=== PATIENT | female | born 1960 | race Hispanic/Latino ===

== ENCOUNTER 2017-09-12 18:13 | Emergency (ER) | payer OTHER ==
--- NOTE | 2017-09-12 20:13 | RAD REPORT ---
EXAM DESCRIPTION: RAD - Chest Single View - 09/12/2017 8:08 pm CLINICAL HISTORY: Chest pain. COMPARISON: None. FINDINGS: Portable technique limits examination quality. The lungs are grossly clear. The heart is normal in size. No displaced fractures. IMPRESSION: No acute intrathoracic process suspected.
[2017-09-12 20:35] LABS: Absolute Lymphocytes (CBC) 1.3 K/uL (0.7-4.9); Absolute Monocytes 0.9 K/uL (0.1-1.3); Absolute Neutrophil 5.5 K/uL (1.8-8.0); Basophils % 0.8 % (0-1.3); Eosinophils % 3.2 % (0-4.4); Hematocrit 35.4 % (36.0-45.0); Lymphocytes % 16.4 % (15.3-44.8); MCH 26.9 pg (27.0-35.0); MCV 82.1 fL (80-100); MPV 9.3 fL (7.6-11.3); Monocytes % 10.6 % (3.3-12.3); RBC Red Blood Cell Count 4.32 M/uL (3.86-4.86)
[2017-09-12 20:37] LABS: Protime INR 1.02
[2017-09-12 20:42] LABS: Bicarbonate 27 mEq/L (21-31); Glucose Level 99 mg/dL (65-120); Lipase 28 U/L (22-51); Potassium 3.9 mEq/L (3.6-5.0); Sodium Level 141 mEq/L (135-145)
[2017-09-12 20:48] LABS: ALT/SGPT 41 IU/L (10-60); AST/SGOT 42 IU/L (10-42); Alkaline Phosphatase 109 IU/L (42-121); BUN Blood Urea Nitrogen 18 mg/dL (6-20); Bilirubin Direct 0.1 mg/dL (0-0.2); Bilirubin Total 0.2 mg/dL (0.3-1.2); Creatine Phosphokinase 181 IU/L (22-269); Protein, Total 7.1 g/dL (6.0-8.3)
[2017-09-12 20:51] LABS: CKMB Creatine Kinase MB 5.5 ng/ml (0.3-4.0)
[2017-09-12] MEDS ORDERED: ASPIRIN 81 MG CHEWABLE TABLET ONE (21:15)
[2017-09-12] MEDS ORDERED: AZITHROMYCIN 250 MG TAB ONE (21:16)
[2017-09-12 21:55] LABS: CKMB Creatine Kinase MB 5.2 ng/ml (0.3-4.0)
--- NOTE | 2017-09-12 22:06 | EDPHYS ---
Physician Documentation [facility] Name: Shayy Elias Age: 57 yrs Sex: Female : 1960 Arrival Date: 09/12/2017 Time: 18:23 Bed 18 Private MD: None, None ED Physician Alok Moreno HPI: 09/12 19:39 This 57 yrs old Female presents to ER via Ambulatory with complaints of Sore dino Throat. 19:39 The patient presents with sore throat. The patient describes throat pain as raw, dino scratchy. Onset: The symptoms/episode began/occurred 2 day(s) ago. Severity of symptoms: At their worst the symptoms were mild, in the emergency department the symptoms are unchanged. Modifying factors: The symptoms are alleviated by nothing. Associated signs and symptoms: The patient has no apparent associated signs or symptoms. The patient has not experienced similar symptoms in the past. Historical: - Allergies: 18:35 No Known Allergies; sv - Home Meds: 18:35 None [Active]; sv - PMHx: 18:35 None; sv - PSHx: 18:35 Hysterectomy; Gastric Bypass; Hernia repair; sv - Immunization history:: Adult Immunizations up to date. - Social history:: Smoking status: Patient/guardian denies using tobacco. - Ebola Screening: : No symptoms or risks identified at this time. - Family history:: not pertinent. ROS: 19:39 Constitutional: Negative for fever, chills, and weight loss, Eyes: Negative for injury, dino pain, redness, and discharge, Neck: Negative for injury, pain, and swelling, Cardiovascular: Negative for chest pain, palpitations, and edema, Respiratory: Negative for shortness of breath, cough, wheezing, and pleuritic chest pain, Abdomen/GI: Negative for abdominal pain, nausea, vomiting, diarrhea, and constipation, Back: Negative for injury and pain, : Negative for injury, bleeding, discharge, and swelling, MS/Extremity: Negative for injury and deformity, Skin: Negative for injury, rash, and discoloration, Neuro: Negative for headache, weakness, numbness, tingling, and seizure, Psych: Negative for depression, anxiety, suicide ideation, homicidal ideation, and hallucinations, Allergy/Immunology: Negative for hives, rash, and allergies, Endocrine: Negative for neck swelling, polydipsia, polyuria, polyphagia, and marked weight changes, Hematologic/Lymphatic: Negative for swollen nodes, abnormal bleeding, and unusual bruising. 19:39 ENT: Positive for hoarseness, sore throat. 20:07 Respiratory: Negative for dyspnea on exertion, hemoptysis, orthopnea, pleurisy, no dino stridior. Exam: 19:39 Constitutional: This is a well developed, well nourished patient who is awake, alert, dino and in no acute distress. Head/Face: Normocephalic, atraumatic. Eyes: Pupils equal round and reactive to light, extra-ocular motions intact. Lids and lashes normal. Conjunctiva and sclera are non-icteric and not injected. Cornea within normal limits. Periorbital areas with no swelling, redness, or edema. ENT: Nares patent. No nasal discharge, no septal abnormalities noted. Tympanic membranes are normal and external auditory canals are clear. Oropharynx with no redness, swelling, or masses, exudates, or evidence of obstruction, uvula midline. Mucous membranes moist. Neck: Trachea midline, no thyromegaly or masses palpated, and no cervical lymphadenopathy. Supple, full range of motion without nuchal rigidity, or vertebral point tenderness. No Meningismus. Chest/axilla: Normal chest wall appearance and motion. Nontender with no deformity. No lesions are appreciated. Cardiovascular: Regular rate and rhythm with a normal S1 and S2. No gallops, murmurs, or rubs. Normal PMI, no JVD. No pulse deficits. Respiratory: Lungs have equal breath sounds bilaterally, clear to auscultation and percussion. No rales, rhonchi or wheezes noted. No increased work of breathing, no retractions or nasal flaring. Abdomen/GI: Soft, non-tender, with normal bowel sounds. No distension or tympany. No guarding or rebound. No evidence of tenderness throughout. Back: No spinal tenderness. No costovertebral tenderness. Full range of motion. Female : Normal external genitalia. Skin: Warm, dry with normal turgor. Normal color with no rashes, no lesions, and no evidence of cellulitis. MS/ Extremity: Pulses equal, no cyanosis. Neurovascular intact. Full, normal range of motion. Neuro: Awake and alert, GCS 15, oriented to person, place, time, and situation. Cranial nerves II-XII grossly intact. Motor strength 5/5 in all extremities. Sensory grossly intact. Cerebellar exam normal. Normal gait. Psych: Awake, alert, with orientation to person, place and time. Behavior, mood, and affect are within normal limits. Vital Signs: 18:35 BP 88 / 72; Pulse 79; Resp 18; Temp 98.7; Pulse Ox 99% ; Weight 68.04 kg; Pain 5/10; sv 19:08 BP 121 / 51; Pulse 73; Resp 20; Pulse Ox 99% ; Pain 5/10; ao 20:20 BP 121 / 65; Pulse 74; Resp 18; Pulse Ox 100% ; Pain 0/10; ao 21:26 BP 147 / 69; Pulse 76; Resp 16; Pulse Ox 100% on R/A; Pain 0/10; ao 22:32 BP 107 / 51; Pulse 74; Resp 16; Pulse Ox 100% on R/A; Pain 0/10; ao MDM: 18:47 Patient medically screened. [facility] 19:41 Data reviewed: vital signs, nurses notes, lab test result(s), EKG, radiologic studies, dino plain films. 09/12 19:38 Order name: Basic Metabolic Panel; Complete Time: 21:03 [facility] 09/12 19:38 Order name: BNP; Complete Time: 20:51 [facility] 09/12 19:38 Order name: CBC with Diff; Complete Time: 20:51 [facility] 09/12 19:38 Order name: Ckmb; Complete Time: 21:03 [facility] 09/12 19:38 Order name: CPK; Complete Time: 21:03 [facility] 09/12 19:38 Order name: LFT's; Complete Time: 21:03 [facility] 09/12 19:38 Order name: Magnesium; Complete Time: 21:03 [facility] 09/12 19:38 Order name: PT-INR; Complete Time: 20:44 [facility] 09/12 19:38 Order name: Ptt, Activated; Complete Time: 20:44 [facility] 09/12 19:38 Order name: Troponin (emerg Dept Use Only); Complete Time: 20:51 [facility] 09/12 19:38 Order name: Lipase; Complete Time: 21:03 [facility] 09/12 21:04 Order name: Ckmb [facility] 09/12 21:04 Order name: Creatine Phosphokinase [facility] 09/12 21:04 Order name: Troponin (emerg Dept Use Only); Complete Time: 22:05 [facility] 09/12 18:53 Order name: EKG; Complete Time: 18:54 sv 09/12 18:53 Order name: EKG - Nurse/Tech; Complete Time: 19:00 sv 09/12 19:38 Order name: XRAY Chest (1 view); Complete Time: 20:15 [facility] 09/12 19:38 Order name: Cardiac monitoring; Complete Time: 20:18 [facility] 09/12 19:38 Order name: IV Saline Lock; Complete Time: 20:18 [facility] 09/12 19:38 Order name: Labs collected and sent; Complete Time: 20:18 [facility] 09/12 19:38 Order name: O2 Per Protocol; Complete Time: 20:18 [facility] 09/12 19:38 Order name: O2 Sat Monitoring; Complete Time: 20:18 [facility] 09/12 21:04 Order name: Repeat Cardiac Enzymes at; Complete Time: 21:26 [facility] 09/12 21:05 Order name: CKMB Creatine Kinase MB; Complete Time: 22:05 EDMS 09/12 21:05 Order name: Creatine Phosphokinase; Complete Time: 22:05 EDMS Administered Medications: 21:26 Drug: Zithromax 500 mg Route: PO; ao 22:04 Follow up: Response: No adverse reaction ao 21:26 Drug: Aspirin 81 mg Route: PO; ao 22:04 Follow up: Response: No adverse reaction ao Disposition: 09/12/17 22:06 Discharged to Home. Impression: Acute pharyngitis, Acute laryngitis, Chest pain, unspecified. - Condition is Stable. - Discharge Instructions: Nonspecific Chest Pain, Laryngitis, Nonspecific Chest Pain, Mhkp-[id number], Pharyngitis, Ttyw-ya-Ejoq, Aspirin and Your Heart, Sore Throat, Qodk-vn-Cpeg, Laryngitis, Yaty-kp-Ixqc. - Prescriptions for Zithromax Z- Rocael 250 mg Oral Tablet - take 1 tablet by ORAL route as directed for 5 days Day 1 - take two (2) tablets one time. Day 2, 3, 4 , 5 take one (1) tablet once daily.; 6 tablet. Cheratussin AC 10- 100 mg/5 mL Oral liquid - take 5 milliliter by ORAL route every 4 hours; 120 milliliter. Medrol (Rocael) 4 mg Oral Tablets, Dose Pack - take 1 tablet by ORAL route as directed - follow package instructions; 1 packet. - Medication Reconciliation Form, Thank You Letter, Antibiotic Education, Prescription Opioid Use form. - Follow up: Private Physician; When: 2 - 3 days; Reason: Recheck today's complaints, Continuance of care, Re-evaluation by your physician. - Problem is new. - Symptoms have improved. Signatures: Dispatcher [employer] Holly Edwards RN RN sv Anderson, Corey, MD MD cha Mickail, Joel, PA PA jmm Ortiz, Alex, RN RN ao Corrections: (The following items were deleted from the chart) 22:35 22:06 09/12/2017 22:06 Discharged to Home. Impression: Acute pharyngitis; Acute ao laryngitis; Chest pain, unspecified. Condition is Stable. Discharge Instructions: Nonspecific Chest Pain, Laryngitis, Nonspecific Chest Pain, Tsej-zl-Nwmo, Pharyngitis, Ujzv-nq-Banr, Aspirin and Your Heart, Sore Throat, Ntyf-de-Hyft, Laryngitis, Buzu-vh-Qzkn. Prescriptions for Zithromax Z-Rocael 250 mg Oral Tablet - take 1 tablet by ORAL route as directed for 5 days Day 1 - take two (2) tablets one time. Day 2, 3, 4 , 5 take one (1) tablet once daily.; 6 tablet, Cheratussin AC 10-100 mg/5 mL Oral liquid - take 5 milliliter by ORAL route every 4 hours; 120 milliliter, Medrol (Rocael) 4 mg Oral Tablets, Dose Pack - take 1 tablet by ORAL route as directed - follow package instructions; 1 packet. and Forms are Medication Reconciliation Form, Thank You Letter, Antibiotic Education, Prescription Opioid Use. Follow up: Private Physician; When: 2 - 3 days; Reason: Recheck today's complaints, Continuance of care, Re-evaluation by your physician. Problem is new. Symptoms have improved. wayne
--- NOTE | 2017-09-12 22:06 | ER ---
Nurse's Notes [facility] Name: Shayy Elias Age: 57 yrs Sex: Female : 1960 Arrival Date: 09/12/2017 Time: 18:23 Bed 18 Private MD: None, None Diagnosis: Acute pharyngitis;Acute laryngitis;Chest pain, unspecified Presentation: 09/12 18:34 Presenting complaint: Patient states: sore throat, intermittent midsternal chest pain, sv green productive cough, bodyaches. Transition of care: patient was not received from another setting of care. Onset of symptoms was September 11, 2017. Care prior to arrival: None. 18:34 Method Of Arrival: Ambulatory sv 18:34 Acuity: RADHA 3 sv 19:08 Risk Assessment: Do you want to hurt yourself or someone else? Patient reports no ao desire to harm self or others. Initial Sepsis Screen: Does the patient meet any 2 criteria? No. Patient's initial sepsis screen is negative. Does the patient have a suspected source of infection? No. Patient's initial sepsis screen is negative. Historical: - Allergies: 18:35 No Known Allergies; sv - Home Meds: 18:35 None [Active]; sv - PMHx: 18:35 None; sv - PSHx: 18:35 Hysterectomy; Gastric Bypass; Hernia repair; sv - Immunization history:: Adult Immunizations up to date. - Social history:: Smoking status: Patient/guardian denies using tobacco. - Ebola Screening: : No symptoms or risks identified at this time. - Family history:: not pertinent. Screenin:08 Abuse screen: Denies threats or abuse. Denies injuries from another. Nutritional ao screening: No deficits noted. Tuberculosis screening: No symptoms or risk factors identified. Fall Risk None identified. Assessment: 19:06 General: Appears in no apparent distress. comfortable, Behavior is calm, cooperative, ao appropriate for age. Pain: Complains of pain in chest Pain currently is 5 out of 10 on a pain scale. Neuro: Level of Consciousness is awake, alert, obeys commands, Oriented to person, place, time, situation, Appropriate for age Moves all extremities. Speech is normal, Facial symmetry appears normal, Pupils are PERRLA. Cardiovascular: Capillary refill < 3 seconds Patient's skin is warm and dry. Respiratory: Airway is patent Respiratory effort is even, unlabored, Respiratory pattern is regular, symmetrical, Breath sounds with crackles bilaterally. GI: Abdomen is non-distended. : No signs and/or symptoms were reported regarding the genitourinary system. EENT: Throat is reddened. Derm: No signs and/or symptoms reported regarding the dermatologic system. Musculoskeletal: No signs and/or symptoms reported regarding the musculoskeletal system. Circulation, motion, and sensation intact. Range of motion:. 20:20 Reassessment: Patient appears in no apparent distress at this time. Patient and/or ao family updated on plan of care and expected duration. Pain level reassessed. Patient is alert, oriented x 3, equal unlabored respirations, skin warm/dry/pink. 21:26 Reassessment: Patient appears in no apparent distress at this time. Patient and/or ao family updated on plan of care and expected duration. Pain level reassessed. Patient is alert, oriented x 3, equal unlabored respirations, skin warm/dry/pink. Waiting on second troponin level and then Patient should be able to be discharge as ordered by Dr Moreno. 22:32 Reassessment: Discharge instructions given to patient. patient understand the POC and ao to follow up with PCP. Vital Signs: 18:35 BP 88 / 72; Pulse 79; Resp 18; Temp 98.7; Pulse Ox 99% ; Weight 68.04 kg; Pain 5/10; sv 19:08 BP 121 / 51; Pulse 73; Resp 20; Pulse Ox 99% ; Pain 5/10; ao 20:20 BP 121 / 65; Pulse 74; Resp 18; Pulse Ox 100% ; Pain 0/10; ao 21:26 BP 147 / 69; Pulse 76; Resp 16; Pulse Ox 100% on R/A; Pain 0/10; ao 22:32 BP 107 / 51; Pulse 74; Resp 16; Pulse Ox 100% on R/A; Pain 0/10; ao ED Course: 18:23 Patient arrived in ED. mr 18:24 None, None is Private Physician. mr 18:34 Triage completed. sv 18:36 Arm band placed on right wrist. sv 18:47 Alok Moreno MD is Attending Physician. dino 18:59 EKG done, by ED staff, reviewed by Alok Moreno MD. [facility] 19:00 Quirino Foss, RN is Primary Nurse. ao 19:00 Patient has correct armband on for positive identification. Placed in gown. Bed in low mh5 position. Call light in reach. Side rails up X 1. Pulse ox on. NIBP on. 20:00 Inserted saline lock: 20 gauge in right antecubital area, using aseptic technique. ao Blood collected. 20:08 XRAY Chest (1 view) In Process Unspecified. EDMS 21:27 Jos Morris PA is PHCP. flynn 22:34 No provider procedures requiring assistance completed. IV discontinued, intact, ao bleeding controlled, No redness/swelling at site. Pressure dressing applied. Administered Medications: 21:26 Drug: Zithromax 500 mg Route: PO; ao 22:04 Follow up: Response: No adverse reaction ao 21:26 Drug: Aspirin 81 mg Route: PO; ao 22:04 Follow up: Response: No adverse reaction ao Outcome: 22:06 Discharge ordered by . m 22:34 Discharged to home ambulatory. ao 22:34 Condition: stable 22:34 Discharge instructions given to patient, Instructed on discharge instructions, follow up and referral plans. Demonstrated understanding of instructions, follow-up care, medications, Prescriptions given X 2. 22:35 Patient left the ED. ao Signatures: Dispatcher [employer] EDMS Holly Duval, Alok Hobbs RN, MD MD cha Mickail, Joel, PA PA jmm Rivera, Maria mr Ortiz, Alex, RN RN ao Martinez, Maria [facility]
--- NOTE | 2017-09-13 06:20 | EKG ---
Test Date: 2017-09-12 Test Time: 18:47:19 Screw Eye Assembler: ELIU MEASUREMENT RESULTS: Intervals: Rate: 71 VA: 190 QRSD: 84 QT: 384 QTc: 417 [place]: P: 35 VA: 190 QRS: -14 T: 27 INTERPRETIVE STATEMENTS: Normal sinus rhythm Normal ECG No previous ECG available for comparison Electronically Signed On 09-13-17 06:19:38 CDT by Dung Zaldivar
== END 2017-09-12 22:35 | disposition home or self-care (01) ==
LOC: ER 18:13
DX: J02.9 Acute pharyngitis, unspecified (principal); J04.0 Acute laryngitis; R07.9 Chest pain, unspecified; Z98.84 Bariatric surgery status
CPT/HCPCS: 36415; 71045; 80048; 80076; 82550; 82553; 83690; 83735; 83880; 84484; 85025; 85610; 85730; 93005; 99284

== ENCOUNTER 2021-02-10 17:43 | Emergency (ER) | payer BC, OTHER ==
--- NOTE | 2021-02-10 19:10 | RAD REPORT ---
EXAM DESCRIPTION: RAD - Hand Left 3 View - 02/10/2021 6:27 pm CLINICAL HISTORY: PAIN COMPARISON: No comparisons FINDINGS: Mild osteopenia. Mild radiocarpal arthritic changes. Moderate first carpometacarpal joint arthritic changes. No acute fracture or dislocation.
[2021-02-10] MEDS ORDERED: TRAMADOL HCL 50 MG TAB ONE (19:46)
--- NOTE | 2021-02-10 19:46 | EDPHYS ---
Physician Documentation [facility] Name: Shayy Elias Age: 60 yrs Sex: Female : 1960 Arrival Date: 02/10/2021 Time: 17:46 Bed DX3 Private MD: ED Physician Magdiel Heath HPI: 02/10 19:35 This 60 yrs old Female presents to ER via Ambulatory with complaints of Fall cp Injury, Wrist Injury, Arm Injury. 19:35 Details of fall: The patient fell from an upright position, while walking. Onset: The cp symptoms/episode began/occurred 3 hour(s) ago. Associated injuries: The patient sustained right wrist, ecchymosis, painful injury, swelling. Severity of symptoms: in the emergency department the symptoms are unchanged, despite home interventions. Historical: - Allergies: 18:04 No Known Allergies; ss - Immunization history:: Client reports receiving the 2nd dose of the Covid vaccine. - Social history:: Smoking status: Patient reports the use of cigarette tobacco products, denies chronic smoking, but will smoke occasionally. ROS: 19:37 Constitutional: Negative for fever. cp 19:37 Neck: Negative for pain with movement, pain at rest, stiffness. 19:37 Back: Negative for pain at rest, pain with movement. 19:37 MS/extremity: Positive for ecchymosis, swelling, tenderness, of the right wrist, Negative for decreased range of motion. 19:37 Neuro: Negative for numbness, tingling. 19:37 All other systems are negative. Exam: 19:40 Constitutional: The patient appears in no acute distress, alert, awake, well developed, cp well nourished. 19:40 Head/Face: Normocephalic, atraumatic. cp 19:40 Neck: ROM/movement: is normal, is supple, without pain, no range of motions limitations. 19:40 Chest/axilla: Inspection: normal. 19:40 Cardiovascular: Rate: normal, Pulses: Pulses are 2+ in left radial artery. 19:40 Respiratory: the patient does not display signs of respiratory distress, Respirations: normal, no use of accessory muscles, no retractions, labored breathing, is not present. 19:40 Back: pain, is absent, ROM is normal. 19:40 Musculoskeletal/extremity: Extremities: grossly normal except: noted in the left wrist: ecchymosis, pain, swelling, tenderness, ROM: limited passive range of motion due to pain, in the left wrist, Perfusion: the extremity is normally perfused throughout, the left hand Sensation intact. skin intact with no open wounds. Vital Signs: 18:03 BP 134 / 65; Pulse 65; Resp 16; Temp 98.0(TE); Pulse Ox 99% on R/A; Weight 68.04 kg; ss Height 5 ft. 5 in. (165.10 cm); Pain 8/10; 20:12 BP 142 / 67; Pulse 54; Resp 18 S; Pulse Ox 100% on R/A; Pain 7/10; bb 18:03 Body Mass Index 24.96 (68.04 kg, 165.10 cm) ss Procedures: 20:00 Splinting: Splint applied to left wrist using velcro thumb spica wrist splint. applied cp by nurse. Examined by me, post splint application: neurovascular intact, Patient tolerated well. MDM: 19:39 Patient medically screened. cp 19:40 Differential diagnosis: contusion, fracture, laceration, multiple trauma, sprain, cp strain. 19:44 Data reviewed: vital signs, nurses notes, radiologic studies, plain films. Test cp interpretation: by ED physician or midlevel provider: plain radiologic studies. 02/10 18:06 Order name: XRAY Hand LEFT 3 View 02/10 19:38 Order name: Splint: velcro thumb spica; Complete Time: 20:08 cp Administered Medications: 19:49 Drug: traMADol 50 mg Route: PO; bb 20:11 Follow up: Response: Pain is decreased bb 19:49 Drug: Tylenol 1000 mg Route: PO; bb 20:11 Follow up: Response: No adverse reaction bb Disposition: 20:00 Chart complete. cp 02/11 05:48 Co-signature as Attending Physician, Magdiel Heath MD I agree with the assessment and sp3 plan of care. Disposition Summary: 02/10/21 19:45 Discharge Ordered Location: Home cp Problem: new cp Symptoms: have improved cp Condition: Stable cp Diagnosis - Sprain of other part of left wrist and hand cp Followup: cp - With: Alex Cassidy MD - When: 2 - 3 days - Reason: Recheck today's complaints Discharge Instructions: - Discharge Summary Sheet cp - Wrist Sprain, Adult cp Forms: - Medication Reconciliation Form cp - Thank You Letter cp - Antibiotic Education cp - Prescription Opioid Use cp Prescriptions: - Ibuprofen 800 mg Oral Tablet - take 1 tablet by ORAL route every 8 hours As needed take with food; 30 tablet; cp Refills: 0, Product Selection Permitted - Tramadol 50 mg Oral Tablet - take 1 tablet by ORAL route every 8 hours as needed; 12 tablet; Refills: 0, cp Product Selection Permitted Signatures: Dispatcher [employer] EDTanja Ramirez RN RN Leslie Hernandez RN RN ss Alok Shay, OSCAR PA cp Magdiel Heath MD MD sp3 Corrections: (The following items were deleted from the chart) 02/10 19:37 19:35 Splint - Thumb Spica ordered. cp cp 02/11 02:16 02:14 Splinting: Splint applied to left wrist using velcro thumb spica wrist splint. cp applied by nurse. Examined by me, post splint application: neurovascular intact, Patient tolerated well, cp
--- NOTE | 2021-02-10 19:46 | ER ---
Nurse's Notes [facility] Name: Shayy Elias Age: 60 yrs Sex: Female : 1960 Arrival Date: 02/10/2021 Time: 17:46 Bed DX3 Private MD: Diagnosis: Sprain of other part of left wrist and hand Presentation: 02/10 18:03 Chief complaint: Patient states: L wrist and hand pain that began 1 hour ago after fall ss from standing. Coronavirus screen: Client denies travel out of the [place] in the last 14 days. Ebola Screen: Patient denies exposure to infectious person. Patient denies travel to an Ebola-affected area in the 21 days before illness onset. Initial Sepsis Screen: Does the patient meet any 2 criteria? No. Patient's initial sepsis screen is negative. Does the patient have a suspected source of infection? No. Patient's initial sepsis screen is negative. Risk Assessment: Do you want to hurt yourself or someone else? Patient reports no desire to harm self or others. Onset of symptoms was February 10, 2021. 18:03 Method Of Arrival: Ambulatory ss 18:03 Acuity: RADHA 4 ss Historical: - Allergies: 18:04 No Known Allergies; ss - Immunization history:: Client reports receiving the 2nd dose of the Covid vaccine. - Social history:: Smoking status: Patient reports the use of cigarette tobacco products, denies chronic smoking, but will smoke occasionally. Screenin:30 Abuse screen: Denies threats or abuse. Nutritional screening: No deficits noted. bb Tuberculosis screening: No symptoms or risk factors identified. Fall Risk None identified. Assessment: 19:30 General: Appears in no apparent distress. uncomfortable, Behavior is calm, cooperative. bb Pain: Complains of pain in left wrist and hand. Neuro: Level of Consciousness is awake, alert, obeys commands, Oriented to person, place, time, situation. Cardiovascular: Capillary refill < 3 seconds Patient's skin is warm and dry. Respiratory: Respiratory effort is even, unlabored, Respiratory pattern is regular. GI: No signs and/or symptoms were reported involving the gastrointestinal system. Derm: Skin is pink, warm \T\ dry. Musculoskeletal: Circulation, motion, and sensation intact. Reports pain in left hand. 20:10 Reassessment: No changes from previously documented assessment. Patient is alert, bb oriented x 3, equal unlabored respirations, skin warm/dry/pink. splint to left wrist in place pt verbalized understanding of and agrees to plan of care discharge instructions given pt ambulated with steady gait to exit. Vital Signs: 18:03 BP 134 / 65; Pulse 65; Resp 16; Temp 98.0(TE); Pulse Ox 99% on R/A; Weight 68.04 kg; ss Height 5 ft. 5 in. (165.10 cm); Pain 8/10; 20:12 BP 142 / 67; Pulse 54; Resp 18 S; Pulse Ox 100% on R/A; Pain 7/10; bb 18:03 Body Mass Index 24.96 (68.04 kg, 165.10 cm) ED Course: 17:46 Patient arrived in ED. mr 18:04 Triage completed. ss 18:04 Arm band placed on right wrist. ss 18:27 XRAY Hand LEFT 3 View In Process Unspecified. EDMS 19:10 Alok Shay PA is PHCP. cp 19:10 Magdiel Heath MD is Attending Physician. cp 19:30 Patient has correct armband on for positive identification. bb 19:45 Alex Cassidy MD is Referral Physician. cp 20:11 No provider procedures requiring assistance completed. Patient did not have IV access bb during this emergency room visit. Administered Medications: 19:49 Drug: traMADol 50 mg Route: PO; bb 20:11 Follow up: Response: Pain is decreased bb 19:49 Drug: Tylenol 1000 mg Route: PO; bb 20:11 Follow up: Response: No adverse reaction bb Outcome: 19:45 Discharge ordered by . cp 20:11 Discharged to home ambulatory, with family. bb 20:11 Condition: stable 20:11 Discharge instructions given to patient, Instructed on discharge instructions, follow up and referral plans. medication usage, Demonstrated understanding of instructions, follow-up care, medications, Prescriptions given X 2. 20:12 Patient left the ED. bb Signatures: Dispatcher [employer] VINAYCA LarsVicky mr GoldTanja, RN RN Leslie Hernandez RN RN Alok Shay PA PA cp
[2021-02-10] MEDS ORDERED: ACETAMINOPHEN 500 MG TAB ONE (19:47)
[2021-02-10 21:06] VITALS: BP 134/65; TEMP 98; O2SAT 99
--- OUTSIDE RECORDS SUMMARY | 2021-02-13 20:08 | XMS REPORT | Continuity of Care Document ---
:1960 Author Organization [facility] t Address [address] [place] [address] [address]. [address] [place] [address] Care Team Providers Name Role Phone ASHLYN OJEDA Primary Care Physician Unavailable JOSIAS Attending Clinician Unavailable LUCIO CLEARY Attending Clinician Unavailable Lucio Cleary MD Attending Clinician Doctor Unassigned, Jenelle Attending Clinician Unavailable CLARK Attending Clinician Unavailable Josias PARRA Attending Clinician Lizz CABRERA Attending Clinician Unavailable Lizz CABRERA Attending Clinician Unavailable Edmar OJEDA Attending Clinician Unavailable CHRISTAL Attending Clinician Unavailable Lizz MAYNARD Attending Clinician Unavailable CAMPOS Attending Clinician Unavailable JOSIAS Admitting Clinician Unavailable LUCIO CLEARY Admitting Clinician Unavailable Lucio Cleary MD Admitting Clinician Payers Payer Name Policy Type Policy Number Effective Date Expiration Date S alfredo WE[employer] BLUE [id number] 2020 ADVANTAGE O 00:00:00 Problems Condition Condition Condition Status Onset Resolution Last Treating Co mments Source Name Details Category Date Date Treatment Clinician Date Indigestio Indigestio Disease Active Overview : Univers n n 9- Formattin ity of 00:00: g of this [place] 00 note Medical might be Branch different from the original. Added automatic ally from request for surgery [id number] Gastroesop Gastroesop Disease Active Overview : Univers hageal hageal 4- Formattin ity of reflux reflux 00:00: g of this [place] disease, disease, 00 note Medica l unspecifie unspecifie might be Branch d whether d whether different esophagiti esophagiti from the s present s present original. 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 00:00: [place] bypass for bypass for 00 Me dical obesity obesity Branch Anemia Anemia Disease Active Univers 2-16 ity of 00:00: [place] 00 Medical Branch Abnormal Abnormal Disease Active Unive rs LFTs LFTs 2-16 ity of 00:00: [place] 00 Medical Branch Varicose Varicose Disease Active Unive rs veins of veins of 2-11 ity of right right 00:00: [place] lower lower 00 Medical extremity extremity Bran ch with with inflammati inflammati on on Primary Primary Disease Active Univers osteoarthr osteoarthr 2-11 it y of itis of itis of 00:00: [place] left knee left knee 00 Medi karl Branch GERD GERD Disease Active Univers (gastroeso (gastroeso 2-05 it y of phageal phageal 00:00: [place] reflux reflux 00 Medical disease) disease) Branch History of History of Disease Active U nivers hypothyroi hypothyroi 2-05 it y of dism dism 00:00: 00 Medical Branch Allergies, Adverse Reactions, Alerts Allergy Allergy Status Severity Reaction(s) Onset Inactive Treating Comm ents Source Name Type Date Date Clinician No Known Propensi Active Univer s Allergie ty to 3-14 ity of s adverse 00:00: [place] reaction 00 Medical s Branch NO KNOWN Drug Active Univers ALLERGIE Class 3-14 ity of S 00:00: [place] 00 Medical Branch Social History Social Habit Start Date Stop Date Quantity Comments Source History of Smoker University of tobacco use [facility] Exposure to Not sure University of SARS-CoV-2 [place] [facility] (event) Branch Tobacco use and 2020-07-31 2020-07-31 Former user Universi ty of exposure 00:00:00 00:00:00 [facility] Tobacco Comment 2020-07-31 2020-07-31 smoked on/off Univer sity of 00:00:00 00:00:00 for past 50 yrs [place] Med ical Branch Sex Ass[birth year] At [birth year] Universit y of 00:00:00 00:00:00 [facility] Smoking Status Start Date Stop Date Source Current some day smoker 2020-07-31 00:00:00 [facility] Medications Ordered Filled Start Stop Current Ordering Indication Dosage Frequency Signature Comments Components Source Medication Medication Date Date Medication? Clinician (SIG) Name Name jeannieicone 2020-04 Yes PRN, Univer s (GAS RELIEF 0-06 Starting ity of (SIMETHICON 14:36: on Mona s E)) 40 00 01/06/21 at Medical mg/0.6 mL 0936, Branch drops Until Discontinu ed, Routine, Intra-op simethicone 2020-04- No PRN, Unive rs (GAS RELIEF 0-06 10-06 Starting ity of (SIMETHICON 14:36: 17:41 on Mon [place] as E)) 40 00 :21 01/06/21 at Medical mg/0.6 mL 0936, Branch drops Until Mon01/06/21 at 1241, Routine, Intra-op MULTIVITAMI 2020-04 Yes Take by Un kera N ORAL 0-06 mouth. ity of 10:36: [address] ferrous 2020-04 Yes Take by Univer s sulfate 0-06 mouth. ity of (IRON ORAL) 10:36: [address] omeprazole 2020-04 Yes 20mg Take 20 mg U nivers 20 mg 0-06 by mouth. ity of capsule 10:36: [address] calcium 2020-04 Yes Take by Univer s carbonate 0-06 mouth. ity of (TUMS ORAL) 10:36: [address] MULTIVITAMI 2020-04 Yes Take by Un kera N ORAL 0-06 mouth. ity of 10:36: [address] ferrous 2020-04 Yes Take by Univer s sulfate 0-06 mouth. ity of (IRON ORAL) 10:36: [address] omeprazole 2020-04 Yes 20mg Take 20 mg U nivers 20 mg 0-06 by mouth. ity of capsule 10:36: [address] calcium 2020-04 Yes Take by Univer s carbonate 0-06 mouth. ity of (TUMS ORAL) 10:36: [address] MULTIVITAMI Yes Take by Un kera N ORAL 9-24 mouth. ity of 09:55: [address] ferrous Yes Take by Univer s sulfate 9-24 mouth. ity of (IRON ORAL) 09:55: [address] omeprazole Yes 20mg Take 20 mg U nivers 20 mg 9-24 by mouth. ity of capsule 09:55: [address] calcium Yes Take by Univer s carbonate 9-24 mouth. ity of (TUMS ORAL) 09:55: [address] MULTIVITAMI Yes Take by Un kera N ORAL 9-24 mouth. ity of 09:55: [address] ferrous Yes Take by Univer s sulfate 9-24 mouth. ity of (IRON ORAL) 09:55: [address] omeprazole Yes 20mg Take 20 mg U nivers 20 mg 9-24 by mouth. ity of capsule 09:55: [address] calcium Yes Take by Univer s carbonate 9-24 mouth. ity of (TUMS ORAL) 09:55: [address] Immunizations Ordered Filled Immunization Date Status Comments [facility] e Immunization Name Name SARS-COV-2 COVID-19 2020-06-20 Completed Unive rsity of PFIZER VACCINE 00:00:00 [facility] SARS-COV-2 COVID-19 2020-06-20 Completed Unive rsity of PFIZER VACCINE 00:00:00 [facility] SARS-COV-2 COVID-19 2020-06-20 Completed Unive rsity of PFIZER VACCINE 00:00:00 [facility] SARS-COV-2 COVID-19 2020-06-20 Completed Unive rsity of PFIZER VACCINE 00:00:00 [facility] SARS-COV-2 COVID-19 2020-05-30 Completed Unive rsity of PFIZER VACCINE 00:00:00 [facility] SARS-COV-2 COVID-19 2020-05-30 Completed Unive rsity of PFIZER VACCINE 00:00:00 [facility] SARS-COV-2 COVID-19 2020-05-30 Completed Unive rsity of PFIZER VACCINE 00:00:00 [facility] SARS-COV-2 COVID-19 2020-05-30 Completed Unive rsity of PFIZER VACCINE 00:00:00 [facility] Branch Pneumococcal 2020-03-03 Completed University o f Polysaccharide, 00:00:00 [place] [facility] ical PPSV23 (PNEUMOVAX) Branch Influenza Virus 2020-03-03 Completed Universit y of Vaccine 00:00:00 [facility] Pneumococcal 2020-03-03 Completed University o f Polysaccharide, 00:00:00 [place] [facility] ical PPSV23 (PNEUMOVAX) Branch Influenza Virus 2020-03-03 Completed Universit y of Vaccine 00:00:00 [facility] Pneumococcal 2020-03-03 Completed University o f Polysaccharide, 00:00:00 [place] [facility] ical PPSV23 (PNEUMOVAX) Branch Influenza Virus 2020-03-03 Completed Universit y of Vaccine 00:00:00 [facility] Pneumococcal 2020-03-03 Completed University o f Polysaccharide, 00:00:00 [place] [facility] ical PPSV23 (PNEUMOVAX) Branch Influenza Virus 2020-03-03 Completed Universit y of Vaccine 00:00:00 [facility] Vital Signs Vital Name Observation Time Observation Value Comments Source Systolic blood 2021-01-06 15:27:00 110 mm[Hg] Univer sity of pressure [facility] Diastolic blood 2021-01-06 15:27:00 56 mm[Hg] Unive rsity of pressure [facility] Heart rate 2021-01-06 15:27:00 79 /min [facility] Respiratory rate 2021-01-06 15:27:00 22 /min [facility] Oxygen saturation in 2021-01-06 15:27:00 99 /min [facility] Arterial blood by [facility] Pulse oximetry [place] Body temperature 2021-01-06 14:58:00 35.89 [place] [facility] Body height 2021-01-06 14:04:00 154.9 cm [facility] Body weight 2021-01-06 14:04:00 66.2 kg [facility] BMI 2021-01-06 14:04:00 27.58 kg/m2 [facility] Systolic blood 2021-01-06 14:04:00 122 mm[Hg] Univer sity of pressure [facility] Diastolic blood 2021-01-06 14:04:00 60 mm[Hg] Unive rsity of pressure [place] [facility] [place] Heart rate 2021-01-06 14:04:00 50 /min Universi ty of [place] [facility] [place] Body temperature 2021-01-06 14:04:00 36.11 [place] Univ ersity of [place] [facility] Respiratory rate 2021-01-06 14:04:00 13 /min Univ ersity of [facility] Body height 2021-01-06 14:04:00 154.9 cm Universi ty of [place] [facility] Body weight 2021-01-06 14:04:00 66.2 kg Universi ty of [place] [facility] BMI 2021-01-06 14:04:00 27.58 kg/m2 Universi ty of [facility] Oxygen saturation in 2021-01-06 14:04:00 100 /min University of Arterial blood by [facility] Pulse oximetry Branch Systolic blood 2020-12-25 14:54:00 109 mm[Hg] Univer sity of pressure [place] [facility] [place] Diastolic blood 2020-12-25 14:54:00 66 mm[Hg] Unive rsity of pressure [place] [facility] [place] Heart rate 2020-12-25 14:54:00 55 /min Universi ty of [place] [facility] [place] Body temperature 2020-12-25 14:54:00 36.5 [place] Univ ersity of [facility] Respiratory rate 2020-12-25 14:54:00 18 /min Univ ersity of [place] [facility] [place] Body height 2020-12-25 14:54:00 162.6 cm Universi ty of [place] [facility] [place] Body weight 2020-12-25 14:54:00 68.584 kg Universi ty of [place] [facility] BMI 2020-12-25 14:54:00 25.95 kg/m2 Universi ty of [facility] [place] [facility] Oxygen saturation in 2020-12-25 14:54:00 100 /min University of Arterial blood by [facility] Pulse oximetry Branch Procedures Procedure Date / Time Performing Clinician Source Performed COLONOSCOPY 2021-01-06 14:13:00 Ehsan Cleary [facility] COLONOSCOPY (ENDO) 2021-01-06 14:05:01 Yoshi Branham [facility] COLONOSCOPY (ENDO) 2021-01-06 14:05:01 Yoshi Branham [facility] ASSIGNMENT OF BENEFITS 2021-01-06 13:18:12 Doctor Unassigned, No [facility] Encounters Start End Encounter Admission Attending Care Care Encounter Source Date/Time Date/Time Type Type Clinicians Facility Department ID 2021-02-02 Outpatient Casa JOSIAS [facility] [id number] Univers 07:34:06 YOSHI sosa [facility] 2021-02-02 Outpatient Casa CLEARY [facility] [id number] Univers 01:59:06 EHSAN sosa [facility] 2021-02-01 Outpatient Casa DA SILVAJOSIAS, [facility] [id number] Univers 11:11:00 YOSHI sosa [facility] 2021-01-31 [id number] Univers 15:46:31 YOSHI quinn [facility] 2021-02-13 2021-02-13 Outpatient R [facility] [id number] Univers 08:15:00 08:15:[facility] [id number] 2021-[facility] 2021-02-05 Outpatient Casa JOSIAS [facility] [id number] Univers 09:00:00 09:00:00 YOSHI sosa [facility] 2021-02-05 2021-02-05 Outpatient Casa JOSIAS [facility] [id number] Univers 09:00:00 09:00:00 YOSHI [id number] sheila [facility] 2021-01-06 2021-01-06 Hospital Justice [facility] [id number] Univers 08:28:00 10:30:00 Encounter Ehsan JOSEPH [id number] ity of Lucio SCIENCES [id number] [place] as BLDG [phone] [address] 2021-01-06 2021-01-06 [facility] [id number] Univers 09:00:00 09:45:00 Ehsan JOSEPH [id number] it y of [place] SCIENCES [id number] [place] BLDG [id number] [address] 2021-01-06 2021-01-06 Orders Doctor MOSER [id number] Univers 00:00:00 00:00:00 Only Unassigned, MAHSA [id number] [facility] [id number] [place] [phone] [address] 2021-01-04 2021-01-04 Outpatient R CLARK [facility] [id number] Univers 09:15:00 09:15:00 SEEMA [facility] 2021-01-04 2021-01-04 Outpatient R [facility] [id number] Univers 07:30:00 07:30:00 [id number] [facility] 2020-12-25 2020-12-25 [facility] [id number] Univers 09:47:12 11:44:28 Visit Yoshi HURTADO [id number] ity of [facility] [id number] [facility] AT [phone] [address] 2020-12-25 2020-12-25 Outpatient R JOSIAS [facility] [id number] Univers 09:00:00 09:00:00 [facility] [id number] [facility] 2020-12-25 2020-12-25 Outpatient R JOSIAS [facility] [id number] Univers 09:00:00 09:00:00 [facility] 2020-11-23 2020-11-23 Outpatient R KANU CABRERA [facility] [id number] Univers 00:00:00 00:00:00 [facility] [id number] [facility] 2020-11-23 2020-11-23 Outpatient R KANU CABRERA [facility] [id number] Univers 00:00:00 00:00:00 [facility] 2020-11-16 2020-11-16 Outpatient R LYNETTE [facility] [id number] Univers 08:45:00 08:45:00 WONDIFUL [id number] ity o f [facility] 2020-11-16 2020-11-16 Outpatient R LYNETTE [facility] [id number] Univers 08:45:00 08:45:00 WONDIFUL ity o f [facility] 2020-11-10 2020-11-10 Outpatient R [facility] [id number] Univers 14:00:00 14:00:00 [id number] [facility] 2020-10-20 2020-10-20 Outpatient R JOSIAS [facility] [id number] Univers 15:15:00 15:15:00 YOSHI [id number] [facility] 2020-10-20 2020-10-20 Outpatient R JOSIAS [facility] [id number] Univers 15:15:00 15:15:[facility] 2020-08-03 Outpatient R [facility] [id number] Univers 15:45:00 15:45:00 [id number] [facility] 2020-08-03 2020-08-03 Outpatient R JOSIAS [facility] [id number] Univers 15:45:00 15:45:00 [facility] 2020-07-29 2020-07-29 Outpatient R JOSIAS [facility] [id number] Univers 09:00:00 09:00:00 YOSHI [id number] [facility] 2020-07-29 2020-07-29 Outpatient R JOSIAS [facility] [id number] Univers 00:00:00 00:00:00 [facility] 2020-07-28 2020-07-28 Outpatient R JOSIAS [facility] [id number] Univers 14:45:00 14:45:00 YOSHI [id number] [facility] 2020-07-28 2020-07-28 Outpatient R JOSIAS [facility] [id number] Univers 14:45:00 14:45:00 [facility] 2020-07-16 2020-07-16 Outpatient R CHRISTAL [facility] [id number] Univers 15:00:00 15:00:00 HUNG [id number] [facility] 2020-07-16 2020-07-16 Outpatient R CHRISTAL [facility] [id number] Univers 15:00:00 15:00:00 HUNG [facility] 2020-06-20 2020-06-20 Outpatient [facility] [id number] Univers 14:05:00 14:05:00 ity [facility] 2020-06-01 2020-06-01 Outpatient R LYNETTE [facility] [id number] Univers 10:00:00 10:00:00 WONDIFUL ity o f [facility] [place] [facility] 2020-05-30 2020-05-30 Outpatient [facility] [id number] Univers 14:05:00 14:05:00 [facility] 2020-05-14 2020-05-14 Outpatient R ALEYDA [facility] [id number] Univers 13:45:00 13:45:00 WILLIAMS [id number] [facility] 2020-05-14 2020-05-14 Outpatient Casa MAYNARD [facility] [id number] Univers 13:45:00 13:45:00 WILLIAMS [facility] 2020-05-11 2020-05-11 Outpatient [facility] [id number] Univers 08:40:00 08:40:00 [id number] [facility] 2020-05-11 2020-05-11 Outpatient R LYNETTE, [facility] [id number] Univers 08:40:00 08:40:00 WONDIFUL ity o f [facility] 2020-05-08 2020-05-08 Outpatient R LYNETTE [facility] [id number] Univers 14:30:00 14:30:00 WONDIFUL [id number] ity o f [facility] [place] [facility] 2020-05-08 2020-05-08 Outpatient R LYNETTE [facility] [id number] Univers 14:30:00 14:30:00 WONDIFUL ity o f [facility] [place] [facility] 2020-04-27 2020-04-27 Outpatient R CAMPOS [facility] [id number] Univers 18:00:00 18:00:00 CECILIA [facility] Results This patient has no known results.
== END 2021-02-10 20:12 | disposition home or self-care (01) ==
LOC: ER 17:43
PROC: 2W3DX1Z Immobilization of Left Lower Arm using Splint (ICD-10-PCS; principal; 2021-02-10)
DX: S63.502A Unspecified sprain of left wrist, initial encounter (principal); W19.XXXA Unspecified fall, initial encounter
CPT/HCPCS: 99283

== ENCOUNTER 2021-06-16 02:28 | Emergency (ER) | payer BC ==
--- OUTSIDE RECORDS SUMMARY | 2021-06-16 02:32 | XMS REPORT | Continuity of Care Document ---
:1960 Author Organization [facility] t Address [address] [place] [address] [address] [place] [address] Care Team Providers Name Role Phone ASHLYN OJEDA Primary Care Physician Unavailable JOSIAS Attending Clinician Unavailable Casa Corey Attending Clinician Gabriel HUBER Attending Clinician Unavailable Edmar OJEDA Admitting Clinician Unavailable Payers Payer Name Policy Type Policy Number Effective Date Expiration Date S ource Problems Condition Condition Condition Status Onset Resolution Last Treating Co mments Source Name Details Category Date Date Treatment Clinician Date Current Current Disease Active 2020-04 Univers mild mild 2-06 [place]y of [place] Medical depressive depressive Br anch disorder disorder without without prior prior episode episode Indigestio Indigestio Disease Active Overview : Univers n n 9-27 Formattin ity of 00:00: g of this [place] 00 note Medical might be Branch different from the original. Added automatic ally from request for surgery [id number] Gastroesop Gastroesop Disease Active Overview : Univers hageal hageal 4-28 Formattin ity of reflux reflux 00:00: g of this [place] disease, disease, 00 note Medica l unspecifie unspecifie might be Branch d whether d whether different esophagiti esophagiti from the s present s present original. 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 00:00: [place] bypass for bypass for 00 Me dical [...] 2-05 it y of dism dism 00:00: [place] 00 Medical Branch Allergies, Adverse Reactions, Alerts [...] Date Stop Date Quantity Comments Source History SDOH University o f Alcohol Frequency [facility] edical Branch History SDOH University o f Alcohol Std [place] Medical Drinks Branch History SDOH University o f Alcohol Binge [place] [facility] Branch History of Smoker University of tobacco use [facility] Branch Exposure to Not sure University of SARS-CoV-2 [facility] (event) Branch Alcohol intake 2021-06-09 2021-06-09 Current drinker Unive rsity of 00:00:00 00:00:00 of alcohol [facility] (finding) Branch Tobacco use and 2021-05-27 2021-05-27 Former user Universi ty of exposure 00:00:00 00:00:00 [facility] Alcohol Comment 2021-03-05 2021-03-05 Beer one or two Univ ersity of 00:00:00 00:00:00 a month [facility] Branch Tobacco Comment 2021-03-05 2021-03-05 one or two cigs Univ ersity of 00:00:00 00:00:00 a month [facility] Sex Ass[birth year] At [birth year] Universit y of 00:00:00 00:00:00 [facility] Smoking Status Start Date Stop Date Source Former smoker 2021-05-27 00:00:00 2021-05-27 00:00:00 Universi ty of [facility] Medications Ordered Filled Start Stop Current Ordering Indication Dosage Frequency Signature Comments Components Source Medication Medication Date Date Medication? Clinician (SIG) Name Name SERTraline Yes [id number] 25mg Take 1 U nivers 25 mg 1-13 tablet by ity of tablet 00:00: mouth [place] 00 daily. Medical Branch solifenacin Yes [id number] 10mg Take 1 Univers (VESICARE) 1-07 tablet by ity of 10 mg 00:00: mouth [place] tablet 00 daily. Medical Branch estradioL 2020-04 Yes [id number] Apply 1g Univers (ESTRACE) 2-06 vaginally ity o f 0.01 % (0.1 00:00: at bedtime [place] mg/gram) 00 every Medical vaginal night for Branch cream 2 weeks and then apply 1g vaginally at bedtime 2 times per week MULTIVITAMI 2020-04 Yes Take by Un kera N ORAL 2-03 mouth. ity of 14:24: [address] ferrous 2020-04 Yes Take by Univer s sulfate 1-15 mouth. ity of (IRON ORAL) 11:31: [address] omeprazole 2020-04 Yes 20mg Take 20 mg U nivers 20 mg 1-15 by mouth. ity of capsule 11:31: [address] calcium 2020-04 Yes Take by Univer s carbonate 1-15 mouth. ity of (TUMS ORAL) 11:31: [address] traMADoL 50 2020-04 Yes Univer s mg tablet 1-11 ity of 00:00: [address] ibuprofen 2020-04 Yes Univers 800 mg 1-11 ity of tablet 00:00: [address] Immunizations Ordered Filled Immunization Date Status Comments Sourc e Immunization Name Name Influenza Virus 2021-03-05 Completed Universit y of Vaccine Quad IM, 00:00:00 [facility] dical Preserv and ABX Branch Free 6 MO-64 YRS SARS-COV-2 COVID-19 2021-03-03 Completed Unive rsity of PFIZER VACCINE 00:00:00 [facility] [place] [facility] SARS-COV-2 COVID-19 2020-06-20 Completed Unive rsity of PFIZER VACCINE 00:00:00 [facility] [place] [facility] SARS-COV-2 COVID-19 2020-05-30 Completed Unive rsity of PFIZER VACCINE 00:00:00 [facility] [place] [facility] Pneumococcal 2020-03-03 Completed University o f Polysaccharide, 00:00:00 [facility] ical PPSV23 (PNEUMOVAX) [place] Influenza Virus 2020-03-03 Completed Universit y of Vaccine 00:00:00 [facility] Vital Signs Vital Name Observation Time Observation Value Comments Source Systolic blood 2021-06-09 22:14:00 110 mm[Hg] Univer sity of pressure [facility] Diastolic blood 2021-06-09 22:14:00 65 mm[Hg] Unive rsity of pressure [facility] Heart rate 2021-06-09 22:14:00 51 /min [facility] Body temperature 2021-06-09 22:14:[address] [facility] Res[facility] rate 2021-06-09 22:14:00 17 /min [facility] Body height 2021-06-09 22:14:00 154.9 cm [facility] Body weight 2021-06-09 22:14:00 71.85 kg [facility] BMI 2021-06-09 22:14:00 29.93 kg/m2 [facility] Oxygen saturation in 2021-06-09 22:14:00 100 /min [facility] Arterial blood by [facility] Pulse oximetry [place] Procedures This patient has no known procedures. Encounters Start End Encounter Admission Attending Care Care Encounter Source Date/Time Date/Time Type Type Clinicians Facility Department ID 2021-06-25 2021-06-25 Outpatient Casa FERRARA [facility] [id number] Univers 11:30:00 11:30:[email or web address] [facility] [place] [place] 2021-06-09 2021-06-09 ELEANOR Richards [id number] Univers 16:30:00 16:58:29 [id number] [id number] Delfina zaldivar [id number] [place] [address] Branch 2021-06-08 2021-06-08 Outpatient Casa HUBER [facility] [id number] Univers 14:43:15 23:59:00 SENDIL itquinn [facility] Results This patient has no known results.
[2021-06-16] MEDS ORDERED: ONDANSETRON 4 MG/2 ML VIAL ONE (03:22)
[2021-06-16] MEDS ORDERED: MORPHINE 2 MG/ML SYR ONE (03:22)
[2021-06-16] MEDS ORDERED: NA CHLORIDE 0.9% 1,000 ML ONE (03:23)
[2021-06-16] MEDS ORDERED: FAMOTIDINE 20 MG/2 ML VIAL IV ONE (03:23)
[2021-06-16 03:34] LABS: Absolute Lymphocytes (CBC) 0.6 K/uL (0.7-4.9); Lymphocytes % 8.8 % (15.3-44.8); MPV 8.6 fL (7.6-11.3); RBC Red Blood Cell Count 4.71 M/uL (3.86-4.86)
[2021-06-16 03:43] LABS: ALT/SGPT 53 U/L (12-78); AST/SGOT 38 U/L (15-37); Albumin 3.5 g/dL (3.4-5.0); Alkaline Phosphatase 125 U/L (45-117); BUN Blood Urea Nitrogen 11 mg/dL (7-18); Bicarbonate 29 mmol/L (21-32); Bilirubin Total 0.7 mg/dL (0.2-1.0); Glucose Level 109 mg/dL (74-106); Lipase 93 U/L (73-393); Potassium 3.6 mmol/L (3.5-5.1); Protein, Total 6.9 g/dL (6.4-8.2); Sodium Level 139 mmol/L (136-145)
[2021-06-16 04:02] LABS: Anisocytosis 2+; Blood Morphology Comment NOTED (NOT SEEN); Ovalocytes 1+; Platelet Estimate ADEQ; White Blood Cell Scan OK (OK)
--- NOTE | 2021-06-16 06:35 | ER ---
Nurse's Notes [facility] Name: Shayy Elias Age: 61 yrs Sex: Female : 1960 Arrival Date: 06/16/2021 Time: 02:31 Bed 15 Private MD: Diagnosis: Gastroenteritis Presentation: 06/16 02:36 Chief complaint: Patient states: "I feel like a burn inside my stomach. Just 30 min ago tw5 the pain was 10/10. Now it is 7/10"'. Coronavirus screen: Vaccine status: Patient reports receiving the 2nd dose of the covid vaccine. doesn't recall brand, has had three shots. Ebola Screen: Patient negative for fever greater than or equal to 101.5 degrees Fahrenheit, and additional compatible Ebola Virus Disease symptoms Patient denies exposure to infectious person. Patient denies travel to an Ebola-affected area in the 21 days before illness onset. Initial Sepsis Screen: Does the patient meet any 2 criteria? No. Patient's initial sepsis screen is negative. Does the patient have a suspected source of infection? No. Patient's initial sepsis screen is negative. Risk Assessment: Do you want to hurt yourself or someone else? Patient reports no desire to harm self or others. Onset of symptoms was June 15, 2021 at 08:00. 02:36 Method Of Arrival: Ambulatory tw5 02:36 Acuity: RADHA 3 tw5 Triage Assessment: 02:38 General: Appears uncomfortable, Behavior is calm, cooperative, appropriate for age. tw5 Pain: Complains of pain in xiphoid area Pain currently is 7 out of 10 on a pain scale. Quality of pain is described as burning. GI: Reports diarrhea, nausea, vomiting. Historical: - Allergies: 02:38 No Known Allergies; tw5 - Home Meds: 02:38 Nexium 20 mg Oral cpDR 1 cap once daily [Active]; tw5 - PMHx: 02:38 GERD; tw5 - Immunization history:: Flu vaccine is up to date. - Social history:: Smoking status: Patient reports the use of cigarette tobacco products, "Maybe 4 a year.". Screenin:11 Abuse screen: Denies threats or abuse. Denies injuries from another. Nutritional sm5 screening: No deficits noted. Tuberculosis screening: No symptoms or risk factors identified. Fall Risk None identified. Assessment: 03:13 General: Appears uncomfortable, Behavior is cooperative. Pain: Complains of pain in sm5 chest and xiphoid area. Neuro: No deficits noted. Level of Consciousness is awake, alert, obeys commands, Oriented to person, place, time, situation. Cardiovascular: No deficits noted. Capillary refill < 3 seconds Patient's skin is warm and dry. Respiratory: No deficits noted. Airway is patent Trachea midline Respiratory effort is even, unlabored. GI: Reports burning in abd. 04:45 Reassessment: Patient is alert, oriented x 3, equal unlabored respirations, skin sm5 warm/dry/pink. 06:35 Reassessment: Patient and/or family updated on plan of care and expected duration. Pain sm5 level reassessed. Patient states feeling better. Vital Signs: 02:36 BP 116 / 55; Pulse 70; Resp 18; Temp 98.7(O); Pulse Ox 100% on R/A; Weight 72.12 kg; tw5 Height 5 ft. 4 in. (162.56 cm); Pain 7/10; 04:51 BP 109 / 51; Pulse 64; Resp 19; Pulse Ox 96% on R/A; sm5 06:35 BP 104 / 59; Pulse 59; Resp 17; Pulse Ox 97% on R/A; sm5 02:36 Body Mass Index 27.29 (72.12 kg, 162.56 cm) tw5 ED Course: 02:31 Patient arrived in ED. wm 02:38 Triage completed. tw5 02:38 Arm band placed on right wrist. tw5 02:41 Vidya Crouch RN is Primary Nurse. sm5 02:59 John Apple MD is Attending Physician. mh7 03:11 Inserted saline lock: 20 gauge in right antecubital area, using aseptic technique. sm5 Blood collected. 03:31 CBC with Diff Sent. sm5 03:31 CMP Sent. sm5 03:31 Lipase Sent. sm5 04:36 CT Abd/Pelvis - IV Contrast Only In Process Unspecified. EDMS 06:34 Cornelius Sullivan MD is Referral Physician. 7 06:36 Patient has correct armband on for positive identification. Placed in gown. Bed in low sm5 position. Call light in reach. Side rails up X2. Pulse ox on. NIBP on. 06:36 No provider procedures requiring assistance completed. 5 06:43 IV discontinued, intact, bleeding controlled, No redness/swelling at site. Pressure 5 dressing applied. Administered Medications: 03:31 Drug: Zofran (Ondansetron) 4 mg Route: IVP; Site: right antecubital; sm5 06:44 Follow up: Response: Nausea is decreased sm5 03:32 Drug: NS 0.9% 1000 ml Route: IV; Rate: 1 bolus; Site: right antecubital; sm5 04:29 Follow up: IV Status: Completed infusion; IV Intake: 1000ml 5 03:32 Drug: Pepcid (famotidine) 20 mg Route: IVP; Site: right antecubital; sm5 06:44 Follow up: Response: No adverse reaction 5 03:32 Drug: morphine 2 mg Route: IVP; Site: right antecubital; sm5 06:44 Follow up: Response: Pain is decreased sm5 Intake: 04:29 IV: 1000ml; Total: 1000ml. 5 Outcome: 06:34 Discharge ordered by . [facility] 06:43 Discharged to home ambulatory. 5 06:43 Condition: stable 06:43 Discharge instructions given to patient, Instructed on discharge instructions, follow up and referral plans. medication usage, Demonstrated understanding of instructions, follow-up care, medications, Prescriptions given X 4. 06:44 Patient left the ED. 5 Signatures: Dispatcher [employer] EDMS John Apple MD MD [facility] Karen Freeman T[facility] Vidya Crouch, RN RN 5 Corrections: (The following items were deleted from the chart) 02:39 02:38 PMHx: None; 5 5
--- NOTE | 2021-06-16 06:35 | EDPHYS ---
Physician Documentation [facility] Name: Shayy Elias Age: 61 yrs Sex: Female : 1960 Arrival Date: 06/16/2021 Time: 02:31 Bed 15 Private MD: ED Physician John Apple HPI: 06/16 03:41 This 61 yrs old Female presents to ER via Ambulatory with complaints of mh7 Epigastric Pain. 03:41 The patient presents with abdominal pain that is diffuse. Onset: The symptoms/episode mh7 began/occurred yesterday. The symptoms do not radiate. Associated signs and symptoms: Pertinent positives: nausea, vomiting, and diarrhea, nausea and vomiting, diarrhea, Pertinent negatives: anorexia, blood in stools, chest pain, constipation, dysuria, fever, headache, hematuria, palpitations, shortness of breath, vaginal discharge, vomiting blood. The symptoms are described as burning, crampy, intermittent, waxing/waning. Modifying factors: The symptoms are alleviated by nothing, the symptoms are aggravated by nothing. Severity of pain: At its worst the pain was moderate last night, in the emergency department the pain has improved moderately. Historical: - Allergies: 02:38 No Known Allergies; tw5 - Home Meds: 02:38 Nexium 20 mg Oral cpDR 1 cap once daily [Active]; tw5 - PMHx: 02:38 GERD; tw5 - Immunization history:: Flu vaccine is up to date. - Social history:: Smoking status: Patient reports the use of cigarette tobacco products, "Maybe 4 a year.". ROS: 03:41 Constitutional: Negative for fever, chills, and weight loss, Eyes: Negative for injury, mh7 pain, redness, and discharge, ENT: Negative for injury, pain, and discharge, Neck: Negative for injury, pain, and swelling, Cardiovascular: Negative for chest pain, palpitations, and edema, Respiratory: Negative for shortness of breath, cough, wheezing, and pleuritic chest pain, Back: Negative for injury and pain, : Negative for injury, bleeding, discharge, and swelling, MS/Extremity: Negative for injury and deformity, Skin: Negative for injury, rash, and discoloration, Neuro: Negative for headache, weakness, numbness, tingling, and seizure, Psych: Negative for depression, anxiety, suicide ideation, homicidal ideation, and hallucinations, Allergy/Immunology: Negative for hives, rash, and allergies, Endocrine: Negative for neck swelling, polydipsia, polyuria, polyphagia, and marked weight changes, Hematologic/Lymphatic: Negative for swollen nodes, abnormal bleeding, and unusual bruising. Exam: 03:41 Head/Face: Normocephalic, atraumatic. Eyes: Pupils equal round and reactive to light, mh7 extra-ocular motions intact. Lids and lashes normal. Conjunctiva and sclera are non-icteric and not injected. Cornea within normal limits. Periorbital areas with no swelling, redness, or edema. Neck: Trachea midline, no thyromegaly or masses palpated, and no cervical lymphadenopathy. Supple, full range of motion without nuchal rigidity, or vertebral point tenderness. No Meningismus. Chest/axilla: Normal chest wall appearance and motion. Nontender with no deformity. No lesions are appreciated. Cardiovascular: Regular rate and rhythm with a normal S1 and S2. No gallops, murmurs, or rubs. Normal PMI, no JVD. No pulse deficits. Respiratory: Lungs have equal breath sounds bilaterally, clear to auscultation and percussion. No rales, rhonchi or wheezes noted. No increased work of breathing, no retractions or nasal flaring. 03:41 Back: No spinal tenderness. No costovertebral tenderness. Full range of motion. Skin: Warm, dry with normal turgor. Normal color with no rashes, no lesions, and no evidence of cellulitis. MS/ Extremity: Pulses equal, no cyanosis. Neurovascular intact. Full, normal range of motion. Neuro: Awake and alert, GCS 15, oriented to person, place, time, and situation. Cranial nerves II-XII grossly intact. Motor strength 5/5 in all extremities. Sensory grossly intact. Cerebellar exam normal. Normal gait. Psych: Awake, alert, with orientation to person, place and time. Behavior, mood, and affect are within normal limits. 03:41 Constitutional: The patient appears in no acute distress, alert, awake, uncomfortable. 03:41 Abdomen/GI: Inspection: abdomen appears normal, Bowel sounds: normal, in all quadrants, Palpation: moderate abdominal tenderness, in all quadrants, mass, is not appreciated, rebound tenderness, is not appreciated, voluntary guarding, is not appreciated, involuntary guarding, is not appreciated, no appreciated organomegaly, Rectal exam: the exam is deferred, because of patient request, Indicators: McBurney's point is not tender, Edwards's sign is negative, Rovsing's sign is negative, Obturator sign is negative, Psoas sign is negative, Liver: no appreciated palpable abnormalities, Hernia: not appreciated. 05:10 ECG was reviewed by the Attending Physician. 7 Vital Signs: 02:36 BP 116 / 55; Pulse 70; Resp 18; Temp 98.7(O); Pulse Ox 100% on R/A; Weight 72.12 kg; tw5 Height 5 ft. 4 in. (162.56 cm); Pain 7/10; 04:51 BP 109 / 51; Pulse 64; Resp 19; Pulse Ox 96% on R/A; sm5 06:35 BP 104 / 59; Pulse 59; Resp 17; Pulse Ox 97% on R/A; sm5 02:36 Body Mass Index 27.29 (72.12 kg, 162.56 cm) tw5 MDM: 06:33 Differential diagnosis: appendicitis, bowel obstruction, diverticulitis, gastritis, mh7 gastroesophageal reflux disease, non-specific abd pain, pancreatitis, Peptic Ulcer Disease, Pyelonephritis, Ureterolithiasis, urinary tract infection. Data reviewed: vital signs, nurses notes, old medical records, lab test result(s), amylase and lipase, CBC, electrolytes, urinalysis, EKG, radiologic studies, CT scan. Data interpreted: Pulse oximetry: on room air is 96 %. Interpretation: normal. Counseling: I had a detailed discussion with the patient and/or guardian regarding: the historical points, exam findings, and any diagnostic results supporting the discharge/admit diagnosis, lab results, radiology results, the need for outpatient follow up, to return to the emergency department if symptoms worsen or persist or if there are any questions or concerns that arise at home. Response to treatment: the patient's symptoms have resolved after treatment, the patient's blood pressure is in an acceptable range, mental status has returned to baseline, the patient no longer shows bradycardia, the patient is not short of breath, the patient is not tachycardic, the patient's pain is gone, the patient's temperature has normalized, the patient is now symptom free, patient is well hydrated. 06:34 Patient medically screened. [facility] 06/16 03:08 Order name: CBC with Diff; Complete Time: 06:32 [facility] 06/16 03:08 Order name: CMP; Complete Time: 03:47 [facility] 06/16 03:08 Order name: Lipase; Complete Time: 03:47 [facility] 06/16 03:08 Order name: CT Abd/Pelvis - IV Contrast Only [facility] 06/16 03:35 Order name: CBC Smear Scan; Complete Time: 06:32 EDMS 06/16 03:08 Order name: IV Saline Lock; Complete Time: 03:13 [facility] 06/16 03:08 Order name: Labs collected and sent; Complete Time: 03:31 [facility] 06/16 03:46 Order name: EKG; Complete Time: 03:47 [facility] 06/16 03:46 Order name: EKG - Nurse/Tech; Complete Time: 05:03 [facility] EC:10 Rate is 53 beats/min. Rhythm is regular, Sinus bradycardia with No ectopy. QRS [place] is [facility] Normal. DE interval is normal. QRS interval is normal. QT interval is normal. No Q waves. T waves are Normal. No ST changes noted. Clinical impression: Sinus bradycardia and No evidence of ischemia. Administered Medications: 03:31 Drug: Zofran (Ondansetron) 4 mg Route: IVP; Site: right antecubital; sm5 06:44 Follow up: Response: Nausea is decreased sm5 03:32 Drug: NS 0.9% 1000 ml Route: IV; Rate: 1 bolus; Site: right antecubital; sm5 04:29 Follow up: IV Status: Completed infusion; IV Intake: 1000ml sm5 03:32 Drug: Pepcid (famotidine) 20 mg Route: IVP; Site: right antecubital; sm5 06:44 Follow up: Response: No adverse reaction sm5 03:32 Drug: morphine 2 mg Route: IVP; Site: right antecubital; sm5 06:44 Follow up: Response: Pain is decreased 5 Disposition Summary: 06/16/21 06:34 Discharge Ordered Location: Home [facility] Problem: new [facility] Symptoms: have improved [facility] Condition: Stable [facility] Diagnosis - Gastroenteritis [facility] Followup: [facility] - With: Private Physician - When: 1 - 2 days - Reason: Worsening of condition, Recheck today's complaints, Continuance of care, Re-evaluation by your physician Followup: [facility] - With: Cornelius Sullivan MD - When: 1 - 2 days - Reason: Worsening of condition, Recheck today's complaints Discharge Instructions: - Discharge Summary Sheet [facility] - Viral Gastroenteritis, Adult, [id number] [facility] Forms: - Medication Reconciliation Form [facility] - Thank You Letter [facility] - Antibiotic Education [facility] - Prescription Opioid Use [facility] Prescriptions: - ondansetron 4 mg Oral tablet,disintegrating - place 1 tablet by TRANSLINGUAL route every 8 hours As needed; 10 tablet; [facility] Refills: 0, Product Selection Permitted - Pepcid 20 mg Oral Tablet - take 1 tablet by ORAL route every 12 hours for 5 days; 10 tablet; Refills: 0, [facility] Product Selection Permitted - Cipro 500 mg Oral Tablet - take 1 tablet by ORAL route every 12 hours for 5 days; 10 tablet; Refills: 0, [facility] Product Selection Permitted - dicyclomine 20 mg Oral Tablet - take 1 tablet by ORAL route 4 times per day As needed; 20 tablet; Refills: 0, [facility] Product Selection Permitted Signatures: Dispatcher [employer] John Craven MD MD [facility] Destinee [facility] Vidya Crouch RN RN 5 Corrections: (The following items were deleted from the chart) 02:39 02:38 PMHx: None; [place] [id number]
[2021-06-16 06:58] VITALS: TEMP 98.7
[2021-06-16 07:00] VITALS: BP 104/59; O2SAT 97
--- NOTE | 2021-06-16 07:22 | EKG ---
Test Date: 2021-06-16 Test Time: 04:59:18 Decision Support Analyst: MANOLO MEASUREMENT RESULTS: Intervals: Rate: 53 MT: 194 QRSD: 88 QT: 438 QTc: 410 [place]: P: 23 MT: 194 QRS: -21 T: 17 INTERPRETIVE STATEMENTS: Sinus bradycardia Otherwise normal ECG Compared to ECG 09/12/2017 18:47:19 Sinus rhythm no longer present Electronically Signed On 06-16-21 07:21:53 CDT by Javier Donnelly
--- NOTE | 2021-06-16 12:16 | RAD REPORT ---
EXAM DESCRIPTION: CT Abdomen and Pelvis COMPARISON: None. CLINICAL HISTORY: [facility] MAIN Diarrhea;Abd pain;Nausea / vomiting TECHNIQUE: CT of the abdomen and pelvis was acquired with IV contrast material. Coronal and sagitt al reconstructions were obtained. Automated exposure control was utilized on this examination as a dose lowering technique. FINDINGS: Lung bases: Clear. Liver: Normal. Gallbladder and biliary: Normal gallbladder. Unremarkable biliary tree. Pancreas: Normal. Spleen: Normal. Adrenal glands: Normal adrenal glands. Kidneys: Normal kidneys Stomach and Small Bowel: Surgical changes of the stomach. Small hiatal hernia. Urinary bladder: Trace gas is noted in the bladder which is likely iatrogenic. Uterus and Adnexa: Hysterectomy. Colon and Appendix: Moderate colonic diverticulosis. No evidence of appendicitis. Retroperitoneum and lymph nodes: Normal. Vascular: Right femoral varices are noted. Peritoneal cavity: No ascites or free air. Foci of hyperdense fat in the upper abdomen likely represe nt infarcted fat/scar tissue. Musculoskeletal and soft tissues: Small fat-containing ventral hernias are present. Lumbar spondylosi s is present. No aggressive bone lesions. No compression fracture. An L3 Schmorl's node is noted. IMPRESSION 1. No acute intra-abdominal abnormality. 2. Moderate colonic diverticulosis. 3. Surgical changes of the stomach. Small hiatal hernia. Electronically signed by: Abdoul Romero MD 06/16/2021 6:05 AM CDT Due to temporary technical issues with the PACS/Fluency reporting system, reports are being signed by the in house radiologist without review as a courtesy to ensure prompt reporting. The interpreting r adiologist is fully responsible for the content of the report.
== END 2021-06-16 06:44 | disposition home or self-care (01) ==
LOC: ER 02:28
DX: K52.9 Noninfective gastroenteritis and colitis, unspecified (principal); K21.9 Gastro-esophageal reflux disease without esophagitis; Z72.0 Tobacco use
CPT/HCPCS: 96361; 93005; 85025; 36415; 83690; 80053; 74177; 96375; 96374; 99284; Q9967; J2270; J7030; J2405